=== PATIENT | male | born 1980 | race Caucasian/White ===

== ENCOUNTER 2017-02-07 02:33 | Emergency (ER) | payer BC ==
[2017-02-07 02:58] LABS: HEMOGLOBIN 15.1 gm/dl (14.0-17.5); RED BLOOD COUNT 5.18 M/UL (4.20-5.50)
[2017-02-07 03:13] LABS: BUN/CREATININE RATIO 18 (0-10)
== END 2017-02-07 03:39 | disposition home or self-care (01) ==
LOC: ER1 02:33
PROVIDERS: Emergency Medicine
DX: R10.30 Lower abdominal pain, unspecified (principal); R11.2 Nausea with vomiting, unspecified; Z88.0 Allergy status to penicillin
CPT/HCPCS: 36415; 80053; 81001; 83690; 85025; 87086; 99284